=== PATIENT | male | born 1945 | race Caucasian/White ===

== ENCOUNTER → 2018-02-22 | Outpatient (CLI) | payer OTHER, MEDICARE ==
[~2018-02-22] MED LIST: ASPIRIN325 PO; COLACE 100 MG100 MG PO; HYDROCODONE-AP1 EAC6 PO; MIRALAX17 GM PO; SERTRALINE HCL100 MG PO; SPIRIVA18 MCG INH; TRAZODONE HCL50 MG PO; ZOCOR20 MG PO
[2018-02-22 12:44] LABS: CREATININE 0.9 mg/dL (0.7-1.3)
== END ==
LOC: LABMALL 11:48
PROVIDERS: Nurse Practitioner
DX: I25.10 Atherosclerotic heart disease of native coronary artery without angina pectoris (principal); C34.11 Malignant neoplasm of upper lobe, right bronchus or lung; R59.1 Generalized enlarged lymph nodes; Z85.46 Personal history of malignant neoplasm of prostate

== ENCOUNTER → 2018-02-25 | Outpatient (CLI) | payer OTHER, MEDICARE | LOC: CAT 08:54 | DX: R22.2 Localized swelling, mass and lump, trunk (principal) ==

== ENCOUNTER → 2018-03-01 | Outpatient (CLI) | payer OTHER, MEDICARE | LOC: MRI 05:52 | DX: C34.90 Malignant neoplasm of unspecified part of unspecified bronchus or lung (principal); C43.61 Malignant melanoma of right upper limb, including shoulder; H35.89 Other specified retinal disorders; R91.8 Other nonspecific abnormal finding of lung field ==

== ENCOUNTER → 2018-03-08 | Outpatient (CLI) | payer OTHER, MEDICARE ==
[~2018-03-08] VITALS: Ht 175.3 cm; Wt 72.6 kg
[~2018-03-08] MED LIST changes: +ASPIR 8181 MG PO; +DILAUDID 2 MG TA2 MG PO; +DOXYCYCLINE 10100 MG PO; +FLUCONAZOLE 10100 MG PO; +LIPITOR 20 MG T20 M1 PO; +MARINOL 2.5 MG2.5 M1 PO; +MS CONTIN 30 MG30 M1 PO; +NORVASC5 MG PO; +PEPCID20 MG PO; +PREDNISONE 20 M20 M1 PO; +SERTRALINE HCL50 MG PO; +TRAMADOL 50 MG50 MG PO; +ZOFRAN ODT4 M1 PO
--- NOTE | ~2018-03-08 | S ---
[facility] [address] [place] [address] SURGICAL PATH RPT PROCEDURE Name: MENDOZA CARRASCO Room #: REG MOLINA Gandara#: [id number] Admission: 03/08/18 Date of : 41 Discharge: Report #: [id number] Path Case #: [id number] PATHOLOGY REPORT DRAFT COLLECTION DATE: 03/08/2018 RECEIVED DATE: 03/08/2018 SPECIMEN(S) RECEIVED: Liban plummer
[2018-03-08 07:30] VITALS: BP 122/78
[2018-03-08 07:58] LABS: HEMATOCRIT 40.5 % (42.0-52.0); HEMOGLOBIN 13.8 gm/dL (14.0-18.0); MCH 33.5 pg (26.0-34.0); MCHC 34.1 g/dL (28.0-37.0); MCV 98.3 fL (80.0-100.0); RBC 4.12 mil/uL (4.50-6.00); RDW 12.9 % (10.5-14.5); WBC 12.4 thou/uL (4.0-11.0)
[2018-03-08 08:06] LABS: CREATININE 0.9 mg/dL (0.7-1.3); POTASSIUM 3.4 mmol/L (3.5-5.1)
[2018-03-08 08:14] LABS: APTT 24.5 Seconds (24.5-32.8); PROTIME 9.9 Seconds (9.3-11.4)
[2018-03-08 08:40] VITALS: BP 149/76
[2018-03-08 08:45] VITALS: BP 141/83
[2018-03-08 08:50] VITALS: BP 128/76
== END | disposition home or self-care (01) ==
LOC: CAT 05:54 → SPEC 05:54 → CAT 15:15 → SPEC 03-11 15:42
PROVIDERS: Radiology Diagnostic Radiology
DX: M79.89 Other specified soft tissue disorders (principal); I10 Essential (primary) hypertension; E78.5 Hyperlipidemia, unspecified; J44.9 Chronic obstructive pulmonary disease, unspecified; Z85.46 Personal history of malignant neoplasm of prostate; Z87.891 Personal history of nicotine dependence; Z79.82 Long term (current) use of aspirin; Z79.899 Other long term (current) drug therapy